=== PATIENT | male | born 1940 | race Caucasian/White ===

== ENCOUNTER 2021-09-16 05:49 | Day surgery (SDC) | payer MEDICARE, BC ==
[2021-09-16 06:49] VITALS: PULSE 60
[2021-09-16] MEDS ORDERED: Sodium Chloride 0.9% 10 ML Syringe FLUSH PRN (07:00)
[2021-09-16 08:11] VITALS: BP 127/67
== END 2021-09-16 08:21 | disposition home or self-care (01) ==
LOC: JP.SDS 05:49
PROVIDERS: ATTEND Ophthalmology
DX: H25.12 Age-related nuclear cataract, left eye (principal); Z88.8 Allergy status to other drugs, medicaments and biological substances

== ENCOUNTER 2021-09-30 07:26 | Day surgery (SDC) | payer MEDICARE, BC ==
[2021-09-30] MEDS ORDERED: Sodium Chloride 0.9% 10 ML Syringe FLUSH ONE (08:00)
[2021-09-30 08:53] VITALS: BP 157/61; PULSE 60
== END 2021-09-30 09:11 | disposition home or self-care (01) ==
LOC: JP.SDS 07:26
PROVIDERS: ATTEND Ophthalmology
DX: H25.11 Age-related nuclear cataract, right eye (principal); I10 Essential (primary) hypertension
CPT/HCPCS: 66984; J3490; V2632